=== PATIENT | female | born 2000 | race Two or more races ===

== ENCOUNTER 2021-09-01 23:11 | Emergency (ER) | payer OTHER ==
[~2021-09-01] VITALS: Ht 170.2 cm; Wt 56.7 kg
== END 2021-09-02 08:31 | disposition home or self-care (01) ==
LOC: ER 23:11
DX: R10.2 Pelvic and perineal pain (principal); N39.0 Urinary tract infection, site not specified; N83.8 Other noninflammatory disorders of ovary, fallopian tube and broad ligament